=== PATIENT | female | born 1945 | race Caucasian/White ===

== ENCOUNTER → 2017-01-01 | Outpatient (CLI) | payer MEDICARE, OTHER ==
[~2017-01-01] MED LIST: ACET325T14 PO; ASPI325T4 PO; CALC1CAP8 PO; CALC600T4 PO; CHOL20002 PO; CHOL500015 PO; CYAN10005 PO; FLUO10TA PO; FLUO40CA2 PO; HYDR-3240 PO; LACT1CAP40 PO; MINO100T2 PO; MULT-208 PO; MV-M1TAB16 PO; RALO60TA12 PO; TAMS-11 PO; VITA0.4T5 PO; VITA1CAP PO; [UNRECOGNIZED DRUG - OTHER] PO
[2017-01-01 10:35] LABS: PATH.CAST-FLAG NOT PRESENT; SPERM-FLAG NOT PRESENT; SRC-FLAG NOT PRESENT; XTAL-FLAG NOT PRESENT; YLC-FLAG NOT PRESENT
== END | disposition home or self-care (01) ==
LOC: STAR 09:15
PROVIDERS: ATTEND Orthopaedic Surgery
DX: Z01.818 Encounter for other preprocedural examination (principal); M17.11 Unilateral primary osteoarthritis, right knee; M17.12 Unilateral primary osteoarthritis, left knee; Z96.652 Presence of left artificial knee joint
CPT/HCPCS: 81001; 87081; 87086; 93005

== ENCOUNTER 2017-01-11 06:14 | Inpatient (IN) | payer MEDICARE, OTHER ==
[2017-01-01 09:45] VITALS: BP 116/81
[~2017-01-11] VITALS: Ht 152.4 cm; Wt 92.9 kg
[2017-01-11] MEDS ORDERED: KETOROLAC 60 MG/2 ML ONE (06:26)
[2017-01-11] MEDS ORDERED: ROPIvacaine/PF 0.2%, 20 ML ONE (06:27)
[2017-01-11] MEDS ORDERED: EPINEPHRINE 1 MG/ML, 1ML ONE (06:27)
[2017-01-11] MEDS ORDERED: SODIUM CHLORIDE 0.9% 50 ML ONE (06:27)
[2017-01-11] MEDS ORDERED: TRANEXAMIC ACID 100 MG/ML, 10ML ONE (06:27)
[2017-01-11] MEDS ORDERED: BUPIVACAINE/PF 0.5% ONE (06:40)
[2017-01-11] MEDS ORDERED: LACTATED RINGERS 1,000 ML IV SCH (06:47)
[2017-01-11] MEDS ORDERED: LIDOCAINE 1%, 2ML SQ PRN (07:00)
[2017-01-11] MEDS ORDERED: GABAPENTIN PO (07:01)
[2017-01-11] MEDS ORDERED: TRAMADOL PO (07:01)
[2017-01-11] MEDS ORDERED: FENTANYL PF 100 MCG/2ML ONE (08:13)
[2017-01-11] MEDS ORDERED: MIDAZOLAM 1 MG/ML, 2ML ONE (08:13)
[2017-01-11] MEDS ORDERED: PROPOFOL 10 MG/ML, 20ML ONE (09:20)
[2017-01-11] MEDS ORDERED: CEFAZOLIN 1,000 MG ONE (09:20)
[2017-01-11] MEDS ORDERED: PROPOFOL 10 MG/ML, 50ML ONE (09:20)
[2017-01-11] MEDS ORDERED: LABETALOL 5MG/ML, 20ML IV PRN (10:00)
[2017-01-11] MEDS ORDERED: FENTANYL PF 100 MCG/2ML IV PRN (10:00)
[2017-01-11] MEDS ORDERED: ONDANSETRON 2MG/ML, 2ML IVPush PRN (10:00)
[2017-01-11] MEDS ORDERED: OXYcodone 5 MG/5 ML ORAL.SOL UDC PO PRN (10:00)
[2017-01-11] MEDS ORDERED: HYDROmorphone 1 MG/ML, 1ML IV PRN ×2 (10:00→11:00)
[2017-01-11] MEDS ORDERED: hydrALAzine 20 MG/ML, 1ML IV PRN (10:00)
[2017-01-11] MEDS ORDERED: PROMETHAZINE 25 MG/ML, 1ML IV PRN (10:00)
[2017-01-11] MEDS ORDERED: ZOLPIDEM 5MG TABLET PO PRN (11:00)
[2017-01-11] MEDS ORDERED: SENNA/DOCUSATE TABLET PO PRN (11:00)
[2017-01-11] MEDS: HYDROcodone/APAP 10/325 MG TABLET PO SCH ×4 (11:00→23:15)
[2017-01-11] MEDS ORDERED: ACETAMINOPHEN 650 MG/20.3 ML UDC PO PRN (11:00)
[2017-01-11] MEDS ORDERED: DIAZEPAM 5 MG TABLET PO PRN (11:00)
[2017-01-11] MEDS ORDERED: OXYcodone IR 5MG TABLET PO PRN (11:00)
[2017-01-11] MEDS ORDERED: ALUMINUM/MAG/SIMETHICONE 30 ML UDC PO PRN (11:00)
[2017-01-11] MEDS: SCOPOLAMINE PATCH, 1.5MG PATCH.TD72 TD SCH (11:00)
[2017-01-11] MEDS ORDERED: BISACODYL 10 MG SUPP PR PRN (11:00)
[2017-01-11] MEDS ORDERED: DIPHENHYDRAMINE 50 MG CAPSULE PO PRN (11:00)
[2017-01-11] MEDS ORDERED: PROMETHAZINE 25 MG/ML, 1ML IM PRN (11:00)
[2017-01-11] MEDS ORDERED: PROMETHAZINE 12.5 MG SUPP PR PRN (11:00)
[2017-01-11] MEDS ORDERED: MAGNESIUM HYDROXIDE 8%, 30ML UDC PO PRN (11:00)
[2017-01-11] MEDS ORDERED: ONDANSETRON 2MG/ML, 2ML IV PRN (11:00)
[2017-01-11] MEDS ORDERED: TRANEXAMIC ACID 1,000 MG in SODIUM CHLORIDE 0.9% 100 ML IVPB ONE (11:15)
[2017-01-11] MEDS ORDERED: ACETAMINOPHEN 650 MG/20.3 ML UDC ONE (12:18)
[2017-01-11] MEDS ORDERED: OXYcodone 5 MG/5 ML ORAL.SOL UDC ONE (12:18)
[2017-01-11] MEDS: TAMSULOSIN 0.4 MG CAP.ER.24H PO SCH (14:46)
[2017-01-11] MEDS: D5%-0.45% NACL 1,000 ML IV SCH ×2 (14:46→21:08)
[2017-01-11] MEDS ORDERED: CEFAZOLIN PMX 2GM/100ML 100 ML IVPB SCH (17:00)
[2017-01-11] MEDS: CEFAZOLIN PMX 2GM/50ML 50 ML IVPB SCH (17:37)
[2017-01-11] MEDS: ASPIRIN 81 MG TABLET EC PO SCH (17:37)
[2017-01-11] MEDS: ONDANSETRON 4 MG TABLET PO PRN (18:31)
[2017-01-11] MEDS: HYDROcodone/APAP 10/325 MG TABLET PO PRN (18:36)
[2017-01-11 19:30] VITALS: BP 91/59
[2017-01-11] MEDS: DOCUSATE 100 MG CAPSULE PO SCH (21:07)
[2017-01-11] MEDS: PREGABALIN 75 MG CAPSULE PO SCH (21:07)
[2017-01-11 23:59] VITALS: BP 91/54
[2017-01-12] MEDS: CEFAZOLIN PMX 2GM/50ML 50 ML IVPB SCH (01:54)
[2017-01-12] MEDS: HYDROcodone/APAP 10/325 MG TABLET PO SCH ×2 (02:56→08:04)
[2017-01-12 03:11] VITALS: BP 92/53
[2017-01-12] MEDS ORDERED: SODIUM CHLORIDE 0.9%, 500ML IVBOLUS ONE (05:00)
[2017-01-12] MEDS: ASPIRIN 81 MG TABLET EC PO SCH ×2 (05:30→18:18)
[2017-01-12] MEDS: ONDANSETRON 4 MG TABLET PO PRN (05:30)
[2017-01-12] MEDS ORDERED: DEXAMETHASONE 4 MG/ML, 1ML IVPush SCH (06:00)
[2017-01-12] MEDS: D5%-0.45% NACL 1,000 ML IV SCH ×3 (06:26→23:38)
[2017-01-12 07:19] VITALS: BP 107/71
[2017-01-12] MEDS: DOCUSATE 100 MG CAPSULE PO SCH ×2 (08:04→21:07)
[2017-01-12] MEDS: FLUOXETINE 10 MG CAP PO SCH (08:05)
[2017-01-12] MEDS: TAMSULOSIN 0.4 MG CAP.ER.24H PO SCH (08:05)
[2017-01-12] MEDS: MULTIVITAMINS/MINERALS TABLET PO SCH (08:06)
[2017-01-12] MEDS: PREGABALIN 75 MG CAPSULE PO SCH ×2 (08:06→21:06)
[2017-01-12] MEDS: D5%-0.45NACL+KCL 20MEQ 1,000 ML IV SCH ×2 (08:14→16:34)
[2017-01-12] MEDS: SCOPOLAMINE PATCH, 1.5MG PATCH.TD72 TD SCH (08:15)
[2017-01-12] MEDS: KETOROLAC 30 MG/1 ML IV SCH ×2 (11:17→18:18)
[2017-01-12 13:45] VITALS: BP 101/72
[2017-01-12] MEDS: HYDROcodone/APAP 10/325 MG TABLET PO PRN ×2 (13:49→18:17)
[2017-01-12] MEDS ORDERED: SODIUM CHLORIDE 0.9% 1,000ML IVBOLUS ONE (16:30)
[2017-01-12 17:50] LABS: BLOOD UREA NITROGEN 11 mg/dL (7-18)
[2017-01-12] MEDS ORDERED: INSULIN ASPART 100 UNITS/ML, PEN SQ-INSULIN ONE (19:00)
[2017-01-12 19:46] VITALS: BP 107/69
[2017-01-12] MEDS: INSULIN ASPART 100 UNITS/ML, PEN SQ-INSULIN SCH (21:07)
[2017-01-12] MEDS: SODIUM CHLORIDE 0.9% 1,000 ML IV SCH (21:14)
[2017-01-13 01:55] VITALS: BP 98/62
[2017-01-13] MEDS: KETOROLAC 30 MG/1 ML IV SCH ×3 (03:21→18:21)
[2017-01-13] MEDS: SODIUM CHLORIDE 0.9% 1,000 ML IV SCH ×3 (05:03→21:13)
[2017-01-13] MEDS: ASPIRIN 81 MG TABLET EC PO SCH ×2 (05:03→18:21)
[2017-01-13] MEDS: INSULIN ASPART 100 UNITS/ML, PEN SQ-INSULIN SCH ×4 (06:46→21:00)
[2017-01-13 06:55] VITALS: BP 115/82
[2017-01-13] MEDS: D5%-0.45NACL+KCL 20MEQ 1,000 ML IV SCH ×2 (07:40→21:00)
[2017-01-13] MEDS: TAMSULOSIN 0.4 MG CAP.ER.24H PO SCH (08:51)
[2017-01-13] MEDS: DOCUSATE 100 MG CAPSULE PO SCH ×2 (08:51→21:13)
[2017-01-13] MEDS: D5%-0.45% NACL 1,000 ML IV SCH (08:52)
[2017-01-13] MEDS: PREGABALIN 75 MG CAPSULE PO SCH ×2 (08:52→21:13)
[2017-01-13] MEDS: FLUOXETINE 10 MG CAP PO SCH (08:52)
[2017-01-13] MEDS: HYDROcodone/APAP 10/325 MG TABLET PO PRN ×2 (08:52→13:10)
[2017-01-13] MEDS: MULTIVITAMINS/MINERALS TABLET PO SCH (08:52)
[2017-01-13 14:20] VITALS: BP 133/90
[2017-01-13] MEDS ORDERED: HYDROcodone/APAP 10/325 MG TABLET PO PRN (15:00)
[2017-01-13 19:02] VITALS: BP 132/58
[2017-01-14 00:59] VITALS: BP 106/71
[2017-01-14] MEDS: SODIUM CHLORIDE 0.9% 1,000 ML IV SCH ×2 (01:08→08:59)
[2017-01-14] MEDS: ASPIRIN 81 MG TABLET EC PO SCH (06:05)
[2017-01-14] MEDS: INSULIN ASPART 100 UNITS/ML, PEN SQ-INSULIN SCH ×3 (06:08→16:06)
[2017-01-14 08:00] VITALS: BP 121/61
[2017-01-14] MEDS: DOCUSATE 100 MG CAPSULE PO SCH (09:00)
[2017-01-14] MEDS: HYDROcodone/APAP 10/325 MG TABLET PO PRN ×2 (09:00→15:49)
[2017-01-14] MEDS: PREGABALIN 75 MG CAPSULE PO SCH (09:01)
[2017-01-14] MEDS: TAMSULOSIN 0.4 MG CAP.ER.24H PO SCH (09:01)
[2017-01-14] MEDS: FLUOXETINE 10 MG CAP PO SCH (09:01)
[2017-01-14] MEDS: MULTIVITAMINS/MINERALS TABLET PO SCH (09:01)
[2017-01-14] MEDS: D5%-0.45NACL+KCL 20MEQ 1,000 ML IV SCH (10:20)
[2017-01-14] MEDS: SCOPOLAMINE PATCH, 1.5MG PATCH.TD72 TD SCH (11:05)
[2017-01-14 14:20] VITALS: BP 114/57
[2017-01-14 15:47] VITALS: BP 129/73
[2017-01-14] MEDS ORDERED: HYDR-3307 PO (16:09)
== END 2017-01-14 16:23 | disposition home or self-care (01) | DRG 470 ==
LOC: ORIP 06:14 → 4NOR 12:47 → DCLOUNGE 01-14 16:07
PROVIDERS: ADMIT Orthopaedic Surgery; ATTEND Orthopaedic Surgery
PROC: 0SRC0J9 Replacement of Right Knee Joint with Synthetic Substitute, Cemented, Open Approach (ICD-10-PCS; principal; 2017-01-11 09:15)
DX: M17.11 Unilateral primary osteoarthritis, right knee (principal); Z68.41 Body mass index [BMI] 40.0-44.9, adult; M81.0 Age-related osteoporosis without current pathological fracture; F32.9 Major depressive disorder, single episode, unspecified; E66.9 Obesity, unspecified; G47.33 Obstructive sleep apnea (adult) (pediatric); Z85.3 Personal history of malignant neoplasm of breast; Z88.5 Allergy status to narcotic agent; T44.3X5A Adverse effect of other parasympatholytics [anticholinergics and antimuscarinics] and spasmolytics, initial encounter; R41.0 Disorientation, unspecified
CPT/HCPCS: 36415; 80048; 82962; 85014; 85018; C1713; J0171; J0690; J1100; J1815; J1885; J2250; J2704; J2795; J3010; J3490; Q0162; C1776; J3480; J7030; J7040; J7120

== ENCOUNTER → 2017-04-09 | Outpatient (CLI) | payer MEDICARE, OTHER ==
[~2017-04-09] MED LIST changes: +GABAPENTIN PO; +HYDR-3307 PO; +TRAMADOL PO
== END | disposition home or self-care (01) ==
LOC: ROC 07:27
PROVIDERS: ATTEND Radiology Radiation Oncology
DX: D05.12 Intraductal carcinoma in situ of left breast (principal); Z92.3 Personal history of irradiation; Z88.5 Allergy status to narcotic agent
CPT/HCPCS: G0463

== ENCOUNTER → 2017-10-18 | Outpatient (CLI) | payer MEDICARE, OTHER ==
[~2017-10-18] MED LIST changes: +ASPI325T17 PO; -ASPI325T4 PO
== END | disposition home or self-care (01) ==
LOC: ROC 09:24
PROVIDERS: ATTEND Radiology Radiation Oncology
DX: Z08 Encounter for follow-up examination after completed treatment for malignant neoplasm (principal); D05.92 Unspecified type of carcinoma in situ of left breast; Z17.1 Estrogen receptor negative status [ER-]
CPT/HCPCS: G0463

== ENCOUNTER → 2018-12-14 | Outpatient (CLI) | payer MEDICARE, OTHER ==
[~2018-12-14] MED LIST changes: -CHOL20002 PO; +CHOL200052 PO
== END | disposition home or self-care (01) ==
LOC: CFH 07:42
PROVIDERS: ATTEND Radiology Radiation Oncology
DX: Z12.31 Encounter for screening mammogram for malignant neoplasm of breast (principal); R92.8 Other abnormal and inconclusive findings on diagnostic imaging of breast
CPT/HCPCS: 77063; 77067

== ENCOUNTER 2019-01-04 10:19 | Outpatient (CLI) | payer MEDICARE, OTHER | END 2019-01-04 23:59 | disposition home or self-care (01) | LOC: ROC 10:19 | PROVIDERS: ATTEND Radiology Radiation Oncology | DX: Z08 Encounter for follow-up examination after completed treatment for malignant neoplasm (principal); Z85.3 Personal history of malignant neoplasm of breast | CPT/HCPCS: G0463 ==

== ENCOUNTER → 2020-01-25 | Outpatient (CLI) | payer MEDICARE, OTHER ==
[~2020-01-25] MED LIST changes: +CYAN-27 PO; -CYAN10005 PO; +HYDR-3246 PO; -HYDR-3307 PO
== END | disposition home or self-care (01) ==
LOC: CFH 07:57
PROVIDERS: ATTEND Nurse Practitioner Family
DX: Z12.31 Encounter for screening mammogram for malignant neoplasm of breast (principal); M85.88 Other specified disorders of bone density and structure, other site; N95.9 Unspecified menopausal and perimenopausal disorder
CPT/HCPCS: 77063; 77067; 77080

== ENCOUNTER → 2021-02-04 | Outpatient (CLI) | payer MEDICARE, OTHER ==
[~2021-02-04] MED LIST changes: -CALC600T4 PO; +CALC600T60 PO; +HYDR-2214 PO; -HYDR-3240 PO; -HYDR-3246 PO; +HYDR-3248 PO; -LACT1CAP40 PO; +LACT1CAP45 PO
== END | disposition home or self-care (01) ==
LOC: CFH 13:18
PROVIDERS: ATTEND Family Medicine
DX: Z12.31 Encounter for screening mammogram for malignant neoplasm of breast (principal)
CPT/HCPCS: 77063; 77067

== ENCOUNTER → 2021-03-27 | Outpatient (CLI) | payer MEDICARE, OTHER | END | disposition home or self-care (01) | LOC: RAD 12:31 → EDSTATUS 12:45 | PROVIDERS: ATTEND Family Medicine | DX: R60.0 Localized edema (principal) ==